=== PATIENT | female | born 1965 | race Caucasian/White ===

== ENCOUNTER 2021-01-21 13:52 | Outpatient (CLI) | payer OTHER, SELFPAY ==
--- NOTE | 2021-01-21 14:04 | MM_ITS ---
WS: [id number] BILATERAL DIGITAL SCREENING MAMMOGRAPHY WITH CAD CLINICAL INFORMATION: SCREEN HISTORY: Screening mammogram. No current complaints. COMPARISON: TECHNIQUE: Bilateral CC and MLO views. FINDINGS: Scattered fibroglandular densities bilaterally. No suspicious focal mass, asymmetry, calcifications, or architectural distortion. No evidence of malignancy. Incidental intramammary lymph node right [address] was present previously. MM/[place] [id number] IMPRESSION: BI-RADS: 2-Benign FOLLOW UP: 1 Year Follow-up Recommend return to annual screening mammography.
== END 2021-01-21 13:53 | disposition home or self-care (01) ==
LOC: RADSHAW 13:58
PROVIDERS: Visit Provider Family Medicine
DX: Z12.31 Encounter for screening mammogram for malignant neoplasm of breast (principal)
CPT/HCPCS: 77067

== ENCOUNTER 2021-08-15 13:44 | Emergency (ER) | payer MEDICAID, SELFPAY ==
[2021-08-15 13:54] VITALS: BP 217/86; PULSE 65; RESP 14; TEMP 36.4; O2SAT 94; BMI 26.5
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
--- NOTE | 2021-08-15 14:41 | XR_ITS ---
WS: [id number] XR knee RT 3V* [id number] REASON FOR EXAM: trauma FINDINGS: No fracture. Joint spaces of the right knee are intact and well preserved. Note knee joint effusion identified. Enthesophyte at the insertion of the quadriceps tendon on the pa tella. XR/XR knee RT 3V* [id number] IMPRESSION: No acute abnormality.
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
[2021-08-15] MEDS: iohexol 300 mg/mL 100 mL Btl IV (15:04)
--- NOTE | 2021-08-15 15:06 | PC.NURSE ---
ATTEMPTED TO PERFORM IV AND ADM TETANUS PT IS NOT IN ROOM WILL ATTEMPT AGAIN IN 15 MINUTES.
[2021-08-15] MEDS: tetanus-dipt-pertussis 0.5 mL SDV IM (15:37)
[2021-08-15 15:41] VITALS: BP 221/90; PULSE 70; O2SAT 98
[2021-08-15 15:51] LABS: Basophils % 0.3 %; Eosinophils # 0.1 10^3/uL (0.0-0.8); Eosinophils % 0.7 %; Hematocrit 42.7 % (37.0-47.0); Hemoglobin 14.2 g/dL (11.5-15.3); Lymphocytes % 14.3 %; Mean Corpuscular HGB Conc 33.3 g/dL (30.0-36.0); Mean Corpuscular Hemoglobin 29.9 pg (28.0-34.0); Mean Corpuscular Volume 89.9 fl (81-99); Mean Platelet Volume 10.7 fL (7.4-10.4); Monocytes # 0.7 10^3/uL (0.2-0.9); Neutrophils # 10.73 10^3/uL (1.8-7.7); Neutrophils % 78.9 %; Nucleated Red Blood Cells % 0 %; Platelet Count 253 10^3/cmm (130-400); Red Blood Count 4.75 10^6/uL (4.1-5.3); Red Cell Distribution Width 12.2 % (12.1-15.1); White Blood Count 13.6 10^3/uL (4.0-10.0)
[2021-08-15 16:00] VITALS: BP 218/97; PULSE 71; O2SAT 99
[2021-08-15 16:18] LABS: Alanine Aminotransferase 22 U/L (0-33); Albumin Level 4.3 g/dL (3.5-5.2); Alkaline Phosphatase 100 IU/L (35-105); Aspartate Amino Transferase 33 U/L (0-32); Blood Urea Nitrogen 14 mg/dL (6-20); Calcium 9.2 mg/dL (8.5-10.5); Carbon Dioxide 23 mmol/L (22-29); Chloride 100 mmol/L (98-107); Creatinine Clr Calc Pharmacy 113.1282; Globulin 2.3 g/dL (1.3-4.6); Glomerular Filtration Rate 128.1 mL/min (90-130); Glucose 88 mg/dL (65-115); Osmolality Calculated 286 mOsm/kg (285-295); Sodium 138 mmol/L (136-145); Total Bilirubin 0.3 mg/dL (0.15-1.2); Total Protein 6.6 g/dL (6.6-8.7)
[2021-08-15 16:22] LABS: Bilirubin Urine Neg (Negative); Blood Urine 2+ (Negative); Glucose Urine UA Norm (Normal); Ketones Urine Negative (Negative); Leukocyte Esterase Urine Negative (Negative); Nitrate Urine Negative (Negative); Protein Urine Neg (Negative); Urine Appearance Clear (CLEAR); Urine Color Yellow (Yellow); Urobilinogen Urine Norm (Negative); pH Urine 6.5 (5-7)
[2021-08-15 16:23] LABS: Add Urine Culture? No; Add Urine Microscopic? YES; Bacteria Urine TRACE /hpf; RBC Urine 0-4 /hpf (0-2); WBC Urine RARE /hpf (0-5)
[2021-08-15] MEDS: amlodipine 10 mg Tablet PO (16:31)
[2021-08-15] MEDS: hyDRALAzine 20 mg/mL INJ 1 mL IVP (16:33)
[2021-08-15 16:56] VITALS: BP 105/57; PULSE 71; RESP 14; O2SAT 96
--- NOTE | 2021-08-17 09:00 | DCPLANNER ---
erp manager had message to schedule a followup appointment for patient with ortho. erp manager called the ortho clinic, spoke with Renetta, gave clinic patients information. erp manager was told that patients information would be printed and reviewed. Clinic will call patient with appointment information.
--- NOTE | 2021-08-19 07:16 | DCPLANNER ---
Addendum entered by Jie Fuentes 09/09/21 10:21: Patient had a follow up appointment scheduled for 08.25.[address] Cárdenas - patient did attend appointment. Original Note: Patient has a follow up appointment scheduled for , August 25, 2021 at 2:[address] Cárdenas at ortho. Clinic will call patient with appointment information.
== END 2021-08-15 17:09 | disposition home or self-care (01) ==
PROVIDERS: Emergency Provider Family Medicine
DX: S22.028A Other fracture of second thoracic vertebra, initial encounter for closed fracture (principal); S22.038A Other fracture of third thoracic vertebra, initial encounter for closed fracture; V89.2XXA Person injured in unspecified motor-vehicle accident, traffic, initial encounter; Z23 Encounter for immunization
CPT/HCPCS: 36415; 51701; 70450; 71260; 72125; 73562; 74177; 80053; 81001; 85025; 90471; 90715; 96374; 97760; 99284; J0360; L0456; Q9967

== ENCOUNTER 2021-08-17 13:29 | Emergency (ER) | payer MEDICAID, SELFPAY ==
[2021-08-17 13:50] VITALS: BP 171/77; PULSE 82; RESP 20; TEMP 37; O2SAT 97; BMI 27.7
--- NOTE | 2021-08-17 13:54 | XR_ITS ---
WS: [id number] XR chest 1V portable [id number] REASON FOR EXAM: sob FINDINGS: Mild tortuosity thoracic aorta with normal heart size. No active pulmonary parenchymal or pleural disease is noted. CT scan of the chest 08/15/2021 demonstra rush no active pulmonary disease. No other significant findings noted. XR/XR chest 1V portable [id number] IMPRESSION: No acute chest abnormality.
--- NOTE | 2021-08-17 14:52 | ED_ITS ---
Documented by User: JOSÉ MIGUEL Lester 08/17/21 14:55 HPI - SOB/Dyspnea General: Chief Complaint: Shortness of Breath/Dyspnea Stated Complaint: CONGESTION/COUGH Time Seen by Provider: 08/17/21 14:45 History of Present Illness: HPI Narrative: Patient states she had some crackling sounds in her chest last night when she is laying down. She is worn a T SLO brace for recent compression fracture in her thoracic area. Patient continues to smoke. Has had a mild cough for the last day. Denies any fever or chills. Denies any muscle aches besides in her back. Pertinent past history: other (Recent thoracic compression fracture) Onset (ago): hour(s) Associated symptoms: Reports no associated symptoms; Deny abdominal pain, chest pain, extremity pain, fever(s), nausea or vomiting Review of Systems Const: Denies: fever(s), chills or body aches Eyes: Denies: change in vision or blurry vision ENMT: Denies: throat pain or nasal congestion Card: Denies: chest pain or dyspnea on exertion Resp: Reports: other (Patient said she heard some crackling sounds in her chest last night); Denies: productive cough or non-productive cough GI: Denies: abdominal pain, nausea or vomiting Musc: Denies: extremity pain Skin/Breast: Denies: rash Neuro: Denies: headache(s) Psych: Denies: anxiety or depression Perfecto/Lymph: Denies: easy bruising Physical Exam Const: COMMON NORMALS: no acute distress, average body habitus and patient oriented x3 HENMT: COMMON NORMALS: normocephalic HEAD & SCALP: normal to inspection and normocephalic FACE & SINUS: normal facial exam Eye: COMMON NORMALS: conjunctivae normal GENERAL EYE: appearance normal, both eyes and all related structures CONJUNCTIVA: Yes conjunctivae normal Neck/C-Spine: COMMON NORMALS: no JVD Chest: COMMONS NORMALS: normal inspection of the chest Resp: COMMON NORMALS: normal respiratory effort and clear to auscultation bilaterally AUSCULTATION: clear to auscultation bilaterally Cardio: COMMON NORMALS: no JVD, regular rate and regular rhythm RATE: regular rate RHYTHM: regular rhythm GI: COMMON NORMALS: Normal to inspection, nondistended, normoactive bowel sounds present Back/Pelvis: OTHER: Patient is wearing her TLSO brace. Extremity: COMMON NORMALS: normal to inspection and full ROM Neuro: COMMON NORMALS: patient oriented x3 Course Vital Signs: Vital signs: Vital Signs Temperature 98.6 F 08/17/21 13:50 Pulse Rate 82 08/17/21 13:50 Respiratory Rate 20 H 08/17/21 13:50 Blood Pressure 171/77 08/17/21 13:50 Pulse Oximetry 97 08/17/21 13:50 MDM - SOB/Dyspnea MDM Narrative: Medical decision making narrative: Patient presents with a history of crackling sounds in her chest last night. She states that she thought she might be developing pneumonia. Chest x-ray here was negative. Vital signs were stable. Patient has had a recent compression fracture in her thoracic area. Patient continues to smoke. Patient has not been doing deep breathing exercises. She says it hurts to take a deep breath and that occurs in her back. Denies any other recent illness. Discharge Plan Discharge Patient Disposition: Home Clinical Impression: Bronchitis Condition: Stable Prescriptions: New ProAir HFA 90 mcg/actuation HFA aerosol inhaler 2 inh inhalation Q4H PRN (Reason: shortness of breath or wheezing) Qty: 6.7 RF: 0 prednisone 20 mg tablet 20 mg PO DAILY Qty: 7 RF: 0 No Action Vitamin C 500 mg Tablet 500 mg PO DAILY RF: 0 garlic Capsule 1 cap PO BID RF: 0 zinc 50 mg Tablet 50 mg PO DAILY RF: 0 Multivitamins 28 mg iron- 800 mcg Tablet 1 tab PO DAILY RF: 0 Dion's wort 1 cap PO BID RF: 0 Vitamin B-12 1 tab PO DAILY RF: 0 apple cider vinegar 1 cap PO BID RF: 0 diclofenac sodium 75 mg tablet,delayed release (DR/EC) 75 mg PO Q12H PRN (Reason: pain) Qty: 20 RF: 0 tizanidine 4 mg capsule 4 mg PO Q6H PRN (Reason: muscle spasticity) Qty: 20 RF: 0 hydrocodone-acetaminophen 5-325 mg tablet 1 tab PO Q6H PRN (Reason: pain) Qty: 15 RF: 0 Discharge Orders: Discharge ED (Routine); Ordered 08/17/21 Ordered By: Xander Dooley Discharge Diet: Usual diet Discharge Activity: Increase activity as tolerated Patient Instructions: Acute Bronchitis (ED) Activity Restrictions/Additional Instructions: Follow-up with medical provider as directed. Take medications as prescribed. Return to the ER or your medical provider if condition worsens. Please read and understand discharge instructions. If any questions ask please. Do deep breathing exercises many times a day. Try to cut back on your smoking. or quit altogether. Contact orthopedic clinic to see about scheduled appointment for compression fracture. Coding Level of Care Code ED English As A Second Language Instructor for Chg Fwd Exam Comprehensive Documented by User: Raffy Vanessa DO 08/20/21 06:18 HPI - SOB/Dyspnea General: Chief Complaint: Shortness of Breath/Dyspnea Stated Complaint: CONGESTION/COUGH Time Seen by Provider: 08/17/21 14:45 Course Vital Signs: Vital signs: Vital Signs Temperature 98.6 F 08/17/21 13:50 Pulse Rate 82 08/17/21 13:50 Respiratory Rate 20 H 08/17/21 13:50 Blood Pressure 171/77 08/17/21 13:50 Pulse Oximetry 97 08/17/21 13:50 MDM - SOB/Dyspnea MDM Narrative: Medical decision making narrative: Chart reviewed and patient discussed with midlevel. Agree with assessment and plan. Discharge Plan Discharge Patient Disposition: Home Clinical Impression: Bronchitis Condition: Stable Prescriptions: New ProAir HFA 90 mcg/actuation HFA aerosol inhaler 2 inh inhalation Q4H PRN (Reason: shortness of breath or wheezing) Qty: 6.7 RF: 0 prednisone 20 mg tablet 20 mg PO DAILY Qty: 7 RF: 0 No Action Vitamin C 500 mg Tablet 500 mg PO DAILY RF: 0 garlic Capsule 1 cap PO BID RF: 0 zinc 50 mg Tablet 50 mg PO DAILY RF: 0 Multivitamins 28 mg iron- 800 mcg Tablet 1 tab PO DAILY RF: 0 Barnhill's wort 1 cap PO BID RF: 0 Vitamin B-12 1 tab PO DAILY RF: 0 apple cider vinegar 1 cap PO BID RF: 0 diclofenac sodium 75 mg tablet,delayed release (DR/EC) 75 mg PO Q12H PRN (Reason: pain) Qty: 20 RF: 0 tizanidine 4 mg capsule 4 mg PO Q6H PRN (Reason: muscle spasticity) Qty: 20 RF: 0 hydrocodone-acetaminophen 5-325 mg tablet 1 tab PO Q6H PRN (Reason: pain) Qty: 15 RF: 0 Discharge Orders: Discharge ED (Routine); Ordered 08/17/21 Ordered By: Xander Dooley Discharge Diet: Usual diet Discharge Activity: Increase activity as tolerated Patient Instructions: Acute Bronchitis (ED) Activity Restrictions/Additional Instructions: Follow-up with medical provider as directed. Take medications as prescribed. Return to the ER or your medical provider if condition worsens. Please read and understand discharge instructions. If any questions ask please. Do deep breathing exercises many times a day. Try to cut back on your smoking. or quit altogether. Contact orthopedic clinic to see about scheduled appointment for compression fracture. Coding Level of Care Code ED English As A Second Language Instructor for David Fwd Exam Comprehensive
== END 2021-08-17 15:45 | disposition home or self-care (01) ==
PROVIDERS: Emergency Provider Nurse Practitioner Family
DX: J40 Bronchitis, not specified as acute or chronic (principal)
CPT/HCPCS: 71045; 99282

== ENCOUNTER → 2021-09-01 15:59 | Outpatient (BNVA) | payer MEDICAID, SELFPAY | PROVIDERS: Referring Provider Family Medicine; Visit Provider Orthopaedic Surgery | DX: S22.000A Wedge compression fracture of unspecified thoracic vertebra, initial encounter for closed fracture (principal); X58.XXXA Exposure to other specified factors, initial encounter; M41.85 Other forms of scoliosis, thoracolumbar region | CPT/HCPCS: 72072 ==